=== PATIENT | male | born 2005 | race Caucasian/White ===

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

== ENCOUNTER 2024-09-18 15:07 | Emergency (ER) | payer OTHER ==
[~2024-09-18] VITALS: Ht 185.4 cm; Wt 98.4 kg
[~2024-09-18 15:07] MED LIST: ALBU2TAB11 PO; AZIT500T66 PO; CETI5SOL52 PO; CHOL20007 OR
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
--- NOTE | 2024-09-18 15:58 | DVH ---
CLINICAL INDICATION: injury TECHNIQUE: XY R HAND 3 VIEW XRAY Comparison: None FINDINGS/IMPRESSION: No acute fracture or dislocation of the right hand. No radiopaque foreign bodies are identified in th e soft tissues.
[2024-09-18] MEDS ORDERED: CEPH500T PO (16:18)
[2024-09-18 16:27] VITALS: BP 106/64; PULSE 71; RESP 16; TEMP 97.6; O2SAT 97
== END 2024-09-18 16:38 | disposition home or self-care (01) ==
LOC: ER 15:07
DX: S60.511A Abrasion of right hand, initial encounter (principal); L03.113 Cellulitis of right upper limb; J45.909 Unspecified asthma, uncomplicated; V89.2XXA Person injured in unspecified motor-vehicle accident, traffic, initial encounter; Y93.89 Activity, other specified; Y92.410 Unspecified street and highway as the place of occurrence of the external cause; Y99.8 Other external cause status
CPT/HCPCS: 73130